=== PATIENT | male | born 1940 | race Caucasian/White ===

== ENCOUNTER → 2017-05-08 | Outpatient (REF) | payer MEDICARE, OTHER ==
[2017-05-08 12:27] LABS: ALBUMIN 3.8 GM/DL (3.2-5.2); ALBUMIN/GLOBULIN RATIO 1.19 (1.00-1.93); ALKALINE PHOSPHATASE 61 U/L (45-117); ALT/SGPT 24 U/L (12-78); ANION GAP 4 MEQ/L (8-16); AST/SGOT 22 U/L (15-37); BILIRUBIN,TOTAL 0.8 MG/DL (0.2-1.0); BLOOD UREA NITROGEN 14 MG/DL (7-18); CALCIUM LEVEL 10.1 MG/DL (8.8-10.2); CARBON DIOXIDE LEVEL 30 MEQ/L (21-32); CHLORIDE LEVEL 108 MEQ/L (98-107); CREATININE FOR GFR 1.06 MG/DL (0.70-1.30); GLOMERULAR FILTRATION RATE > 60.0 (>42); GLUCOSE, FASTING 88 MG/DL (83-110); POTASSIUM SERUM 4.7 MEQ/L (3.5-5.1); SODIUM LEVEL 142 MEQ/L (136-145)
== END ==
LOC: M SFHCPLAZ 08:07
PROVIDERS: ATTEND Internal Medicine
DX: I10 Essential (primary) hypertension (principal)

== ENCOUNTER → 2017-06-18 | Outpatient (REF) | payer MEDICARE, OTHER ==
[~2017-06-18] MED LIST: ACID1TAB5 PO; ATOR1TAB19 PO; CEFD1CAP8 PO; HYDR-643 PO; LISI10TA4 PO; QUES4POW2 PO; REST0.05 OU; VITA1CAP2 PO
[2017-06-18 14:02] LABS: MEAN CORPUSCULAR HEMOGLOBIN 32.6 pg (27.0-33.0); MEAN CORPUSCULAR VOLUME 95.9 fl (80.0-96.0); RED CELL DISTRIBUTION WIDTH 12.5 % (11.5-14.5)
[2017-06-18 14:11] LABS: ALBUMIN/GLOBULIN RATIO 1.25 (1.00-1.93); ALKALINE PHOSPHATASE 58 U/L (45-117); ALT/SGPT 28 U/L (12-78); ANION GAP 6 MEQ/L (8-16); AST/SGOT 21 U/L (15-37); BILIRUBIN,TOTAL 0.7 MG/DL (0.2-1.0); BLOOD UREA NITROGEN 14 MG/DL (7-18); CARBON DIOXIDE LEVEL 26 MEQ/L (21-32); CHLORIDE LEVEL 109 MEQ/L (98-107); CREATININE FOR GFR 0.87 MG/DL (0.70-1.30); GLOMERULAR FILTRATION RATE > 60.0 (>42); GLUCOSE, FASTING 87 MG/DL (83-110); POTASSIUM SERUM 4.3 MEQ/L (3.5-5.1); SODIUM LEVEL 141 MEQ/L (136-145); TOTAL PROTEIN 7.2 GM/DL (6.4-8.2)
== END ==
LOC: M SFHCPLAZ 12:29
PROVIDERS: ATTEND Nurse Practitioner Adult Health
DX: R19.7 Diarrhea, unspecified (principal)

== ENCOUNTER → 2017-06-30 | Outpatient (CLI) | payer MEDICARE, BC, OTHER ==
[2017-06-30 12:13] LABS: BLOOD UREA NITROGEN 12 MG/DL (7-18); CREATININE FOR GFR 1.08 MG/DL (0.70-1.30); GLOMERULAR FILTRATION RATE > 60.0 (>42)
== END ==
LOC: M LAB 11:14
PROVIDERS: ATTEND Internal Medicine Gastroenterology
DX: R19.4 Change in bowel habit (principal)

== ENCOUNTER → 2017-07-08 | Outpatient (CLI) | payer MEDICARE, BC, OTHER ==
[~2017-07-08] MED LIST changes: +GASTROGRAFIN SOLUTION 30ML (Q9963) As Ordered ONE; +ISOVUE-370 76% 100ML VIAL (Q9967) As Ordered ONE
--- NOTE | 2017-07-08 15:02 | REP ---
CT ABDOMEN/PELVIS WITHOUT AND WITH IV CONTRAST: WITH ORAL CONTRAST. HISTORY: Diverticulitis. Left lower quadrant pain. Diarrhea. Comparison CT study is from 09/25/2015. CT CONTRAST DOSE: 100 mL of intravenous Isovue-370. 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 The lung bases show a granulomatous calcification in the left and minimal linear bibasilar fibrosis. There is a cyst in the left lobe of the liver which measures 1.8 cm in greatest diameter and which is unchanged. No other focal liver lesion is seen. Spleen is unremarkable. No adrenal lesion is seen on either side. Pancreas is unremarkable. No gallbladder abnormality is seen. There is a 6 mm calculus in the upper pole of the right kidney without hydronephrosis. Normal caliber aorta is seen. There are scattered stable periaortic lymph nodes. The largest of these is again noted to measure 8 mm. No definite adenopathy. The appendix is surgically absent. There is left colonic diverticulosis without CT evidence of diverticulitis. Prostate is quite enlarged. Seminal vesicles are unremarkable. Urinary bladder is intact. IMPRESSION: 1. Intrarenal nephrolithiasis upper pole right kidney, no hydronephrosis. 2. Prostate enlargement. 3. Left colonic diverticulosis without CT evidence of diverticulitis. 4. Stable small cyst left lobe of the liver. Signed by Homer Ceron MD 07/08/2017 03:27 P
== END ==
LOC: M RAD 11:45
PROVIDERS: ATTEND Internal Medicine Gastroenterology
DX: K57.32 Diverticulitis of large intestine without perforation or abscess without bleeding (principal); R19.7 Diarrhea, unspecified
CPT/HCPCS: 74178; Q9963; Q9967

== ENCOUNTER → 2017-07-17 | Outpatient (REF) | payer MEDICARE, BC, OTHER ==
[~2017-07-17] MED LIST changes: -GASTROGRAFIN SOLUTION 30ML (Q9963) As Ordered ONE; -ISOVUE-370 76% 100ML VIAL (Q9967) As Ordered ONE
== END ==
LOC: M LAB REF 10:30
PROVIDERS: ATTEND Physician Assistant Medical
DX: R19.7 Diarrhea, unspecified (principal)

== ENCOUNTER 2017-08-13 09:07 | Outpatient (CLI) | payer MEDICARE, BC, OTHER ==
[~2017-08-13] VITALS: Ht 167.6 cm; Wt 68.0 kg
[~2017-08-13 09:07] MED LIST changes: -CEFD1CAP8 PO
[2017-08-13] MEDS ORDERED: NS 1,000 ML IV ONE (10:45)
[2017-08-13] MEDS ORDERED: PROPOFOL 200 MG/20 ML VIAL As Ordered ONE (11:25)
[2017-08-13] MEDS ORDERED: LIDOCAINE 2% INJ 100 MG/5 ML SDV (FOR ANES.) As Ordered ONE (11:25)
--- NOTE | 2017-08-13 11:49 | ROOR ---
Patient Name: Adrián Ruiz Procedure Date: 08/13/2017 11:20 AM Date of : 1940 Age: 77 Room: [facility] Gender: Male Note Status: Finalized Procedure: Colonoscopy Indications: Clinically significant diarrhea of unexplained origin Providers: Srinivasan NAIDU MD Referring MD: Arnav Hogan MD Requesting Provider: Medicines: Monitored Anesthesia Care Complications: No immediate complications. Procedure: Pre-Anesthesia Assessment: - The heart rate, respiratory rate, oxygen saturations, blood pressure, adequacy of pulmonary ventilation, and response to care were monitored throughout the procedure. The Colonoscope was introduced through the anus and advanced to 10 cm into the ileum. The colonoscopy was performed without difficulty. The patient tolerated the procedure well. The quality of the bowel preparation was good. Findings: The perianal and digital rectal examinations were normal. A 8 mm polyp was found in the cecum. The polyp was flat. The polyp was removed with a piecemeal technique using a cold snare. Resection and retrieval were complete. Multiple small-mouthed diverticula were found in the sigmoid colon. The exam was otherwise normal throughout the examined colon. The terminal ileum appeared normal. Biopsies for histology were taken with a cold forceps from the entire colon for evaluation of microscopic colitis. Fluid aspiration for Clostridium difficile was performed. Impression: - One 8 mm polyp in the cecum, removed piecemeal using a cold snare. Resected and retrieved. - Moderate diverticulosis in the sigmoid colon. - The exam was otherwise normal throughout the examined colon. - The examined portion of the ileum was normal. - Biopsies were taken with a cold forceps from the entire colon for evaluation of microscopic colitis. - Fluid aspiration was performed for C difficile eval. Recommendation: - Telephone endoscopist for pathology results in 2 weeks. - If the pathology report reveals adenomatous tissue, then repeat the colonoscopy for surveillance in 3 years. - Continue present medications. - Use Questran at 1 packet (4 grams) PO BID. Srinivasan Naidu MD Srinivasan NAIDU MD 08/13/2017 11:49:07 AM This report has been signed electronically. Number of Addenda: 0 Note Initiated On: 08/13/2017 11:20 AM Estimated Blood Loss: Estimated blood loss: none.
[2017-08-13 12:30] VITALS: BP 143/89
== END 2017-08-13 12:45 | disposition home or self-care (01) ==
LOC: M OPP 09:07
PROVIDERS: ATTEND Internal Medicine Gastroenterology
DX: R19.7 Diarrhea, unspecified (principal); R19.4 Change in bowel habit; R10.9 Unspecified abdominal pain; D12.0 Benign neoplasm of cecum; K57.30 Diverticulosis of large intestine without perforation or abscess without bleeding; I10 Essential (primary) hypertension; E78.5 Hyperlipidemia, unspecified; K57.92 Diverticulitis of intestine, part unspecified, without perforation or abscess without bleeding; L40.9 Psoriasis, unspecified; G47.30 Sleep apnea, unspecified; R06.83 Snoring; N40.1 Benign prostatic hyperplasia with lower urinary tract symptoms; Z85.828 Personal history of other malignant neoplasm of skin; Z79.899 Other long term (current) drug therapy; Z80.0 Family history of malignant neoplasm of digestive organs; Z80.3 Family history of malignant neoplasm of breast; Z80.8 Family history of malignant neoplasm of other organs or systems

== ENCOUNTER 2017-08-30 16:57 | Emergency (ER) | payer MEDICARE, BC, OTHER ==
[~2017-08-30] VITALS: Ht 167.6 cm; Wt 68.2 kg
[2017-08-30] MEDS ORDERED: CEFD1CAP8 PO (19:36)
[2017-08-30 19:48] VITALS: BP 163/93
--- NOTE | 2017-08-31 06:06 | REP ---
Chest x-ray: Two views. History: Shortness of breath. Comparison study: September 15, 2007. Findings: There is a granulomatous calcification in the left mid lung zone. Lungs are otherwise well inflated and clear. The pleural angles are sharp. The aorta is somewhat tortuous. Heart size is normal. No significant bony abnormality is seen. Impression: No active disease. Signed by Homer Ceron MD 08/31/2017 08:45 A
== END 2017-08-30 19:50 | disposition home or self-care (01) ==
LOC: M ED 16:57
DX: J01.90 Acute sinusitis, unspecified (principal); I10 Essential (primary) hypertension; E78.00 Pure hypercholesterolemia, unspecified; G47.30 Sleep apnea, unspecified; Z79.899 Other long term (current) drug therapy

== ENCOUNTER → 2017-11-17 | Outpatient (REF) | payer MEDICARE, OTHER ==
[2017-11-17 10:39] LABS: HEMATOCRIT 40.9 % (42.0-52.0); HEMOGLOBIN 13.6 g/dl (14.0-18.0); MEAN CORPUSCULAR HEMOGLOBIN 31.6 pg (27.0-33.0); MEAN CORPUSCULAR HGB CONC 33.3 g/dl (32.0-36.5); MEAN CORPUSCULAR VOLUME 94.9 fl (80.0-96.0); PLATELET COUNT, AUTOMATED 257 10^3/uL (150-450); RED BLOOD COUNT 4.31 10^6/uL (4.30-6.10); RED CELL DISTRIBUTION WIDTH 12.9 % (11.5-14.5); WHITE BLOOD COUNT 6.6 10^3/uL (4.0-10.0)
[2017-11-17 10:56] LABS: TOTAL 25(OH) VITAMIN D 41.4 NG/ML (30.0-100.0)
[2017-11-17 11:06] LABS: ALBUMIN 3.5 GM/DL (3.2-5.2); ALBUMIN/GLOBULIN RATIO 1.06 (1.00-1.93); ALKALINE PHOSPHATASE 67 U/L (45-117); ALT/SGPT 16 U/L (12-78); ANION GAP 4 MEQ/L (8-16); AST/SGOT 12 U/L (7-37); BLOOD UREA NITROGEN 10 MG/DL (7-18); CALCIUM LEVEL 9.6 MG/DL (8.8-10.2); CARBON DIOXIDE LEVEL 29 MEQ/L (21-32); CHLORIDE LEVEL 109 MEQ/L (98-107); CHOLESTEROL LEVEL 123 MG/DL (<200); CHOLESTEROL RISK RATIO 1.732 (<5); CREATININE FOR GFR 1.03 MG/DL (0.70-1.30); GLOMERULAR FILTRATION RATE > 60.0 (>42); GLUCOSE, FASTING 93 MG/DL (83-110); HDL CHOLESTEROL 71 MG/DL (>40); MAGNESIUM LEVEL 2.4 MG/DL (1.8-2.4); NON-HDL-C 52 MG/DL; SODIUM LEVEL 142 MEQ/L (136-145); TOTAL PROTEIN 6.8 GM/DL (6.4-8.2); TRIGLYCERIDES LEVEL 80 MG/DL (<150)
== END ==
LOC: M SFHCPLAZ 08:03
DX: G47.30 Sleep apnea, unspecified (principal); I10 Essential (primary) hypertension; E78.00 Pure hypercholesterolemia, unspecified; E55.9 Vitamin D deficiency, unspecified
CPT/HCPCS: 83735

== ENCOUNTER 2018-01-15 06:40 | Day surgery (SDC) | payer MEDICARE, BC, OTHER ==
[2018-01-15] MEDS: NS 500 ML IV ×2 (07:07)
[2018-01-15] MEDS ORDERED: PROPOFOL 200 MG/20 ML VIAL As Ordered (07:14)
== END 2018-01-15 08:30 | disposition home or self-care (01) ==
LOC: M OPP 06:40
DX: Z09 Encounter for follow-up examination after completed treatment for conditions other than malignant neoplasm (principal); Z86.010 Personal history of colon polyps; Z98.890 Other specified postprocedural states; D12.0 Benign neoplasm of cecum; K57.30 Diverticulosis of large intestine without perforation or abscess without bleeding; K63.89 Other specified diseases of intestine; I10 Essential (primary) hypertension; E78.5 Hyperlipidemia, unspecified; G47.30 Sleep apnea, unspecified; R06.83 Snoring; Z87.442 Personal history of urinary calculi; N40.1 Benign prostatic hyperplasia with lower urinary tract symptoms; Z85.828 Personal history of other malignant neoplasm of skin; Z79.899 Other long term (current) drug therapy; Z80.0 Family history of malignant neoplasm of digestive organs; Z80.3 Family history of malignant neoplasm of breast
CPT/HCPCS: 45385

== ENCOUNTER → 2018-02-03 | Outpatient (REF) | payer MEDICARE, OTHER ==
[2018-02-03 11:39] LABS: HEMATOCRIT 42.2 % (42.0-52.0); HEMOGLOBIN 13.3 g/dl (14.0-18.0); MEAN CORPUSCULAR HEMOGLOBIN 29.7 pg (27.0-33.0); MEAN CORPUSCULAR HGB CONC 31.5 g/dl (32.0-36.5); MEAN CORPUSCULAR VOLUME 94.2 fl (80.0-96.0); PLATELET COUNT, AUTOMATED 297 10^3/uL (150-450); RED BLOOD COUNT 4.48 10^6/uL (4.30-6.10); RED CELL DISTRIBUTION WIDTH 12.9 % (11.5-14.5)
[2018-02-03 12:04] LABS: ANION GAP 5 MEQ/L (8-16); BLOOD UREA NITROGEN 16 MG/DL (7-18); C REACTIVE PROTEIN QUANTITATIV < 0.30 MG/DL (0.00-0.30); CALCIUM LEVEL 10.2 MG/DL (8.8-10.2); CARBON DIOXIDE LEVEL 28 MEQ/L (21-32); CHLORIDE LEVEL 106 MEQ/L (98-107); CREATININE FOR GFR 1.07 MG/DL (0.70-1.30); GLOMERULAR FILTRATION RATE > 60.0 (>42); GLUCOSE, FASTING 81 MG/DL (70-100); POTASSIUM SERUM 4.1 MEQ/L (3.5-5.1); SODIUM LEVEL 139 MEQ/L (136-145)
[2018-02-03 12:34] LABS: ERYTHROCYTE SEDIMENTATION RATE 12 mm/hr (0-20)
== END ==
LOC: M SFHCPLAZ 08:39
DX: Z01.818 Encounter for other preprocedural examination (principal); M25.511 Pain in right shoulder
CPT/HCPCS: 80048

== ENCOUNTER 2018-02-23 07:35 | Inpatient (IN) | payer MEDICARE, BC, OTHER ==
[2018-02-23] MEDS: LIDOCAINE 1% SDV 5 ML VIAL SQ (07:45)
[2018-02-23] MEDS: LR 1,000 ML IV ×2 (08:50→13:15)
[2018-02-23] MEDS ORDERED: ERTAPENEM 1 GM INJ (INVanz) (J1335) As Ordered (08:51)
[2018-02-23] MEDS: MONTELUKAST 10 MG TAB PO ×3 (08:53→15:21)
[2018-02-23] MEDS ORDERED: ROCURONIUM BROMIDE 50 MG/5 ML VIAL As Ordered ×2 (09:44→11:50)
[2018-02-23] MEDS ORDERED: PROPOFOL 200 MG/20 ML VIAL As Ordered (09:44)
[2018-02-23] MEDS: GLUCAGON FOR INJ 1 MG VIAL (J1610) As Ordered (09:44)
[2018-02-23] MEDS ORDERED: ONDANSETRON 4MG/2ML VIAL (J2405) As Ordered (09:44)
[2018-02-23] MEDS ORDERED: LIDOCAINE 2% INJ 100 MG/5 ML SDV (FOR ANES.) As Ordered (09:44)
[2018-02-23] MEDS ORDERED: METOCLOPRAMIDE INJ 10MG/2ML VIAL (J2765) As Ordered (09:44)
[2018-02-23] MEDS ORDERED: fentaNYL 250 MCG/5 ML INJECTION (J3010) As Ordered (09:45)
[2018-02-23] MEDS: ERTAPENEM SODIUM 1 GM in NS 50 ML IV (10:07)
[2018-02-23] MEDS ORDERED: LABETALOL HCL 100 MG/20 ML VIAL As Ordered (11:50)
[2018-02-23] MEDS ORDERED: PHENYLephrine HCL 500 MCG/5 ML (100MCG/ML) SYRINGE (J2370) As Ordered (11:50)
[2018-02-23] MEDS: BUPIVACAINE HCL 0.25% 10 ML VIAL As Ordered (12:20)
[2018-02-23] MEDS: BUPIVACAINE/EPIN 0.5% 30 ML VIAL As Ordered (12:20)
[2018-02-23] MEDS: BUPIVACAINE LIPOSOME/PF 1.3% 20 ML VIAL (13.3MG/ML)(EXPAREL) As Ordered (12:20)
[2018-02-23] MEDS ORDERED: NS 1,000 ML IV (12:36)
[2018-02-23] MEDS ORDERED: EPIDURAL/PCA KEYS XX (12:45)
[2018-02-23] MEDS ORDERED: METOCLOPRAMIDE INJ 10MG/2ML VIAL (J2765) IV (12:45)
[2018-02-23] MEDS ORDERED: PROMETHAZINE INJ 25 MG/ML VIAL (J2550) IV (12:45)
[2018-02-23] MEDS ORDERED: ONDANSETRON 4MG/2ML VIAL (J2405) IV ×2 (12:45→13:15)
[2018-02-23] MEDS ORDERED: diphenhydrAMINE INJ 50MG/ML VIAL (J1200) IV (12:45)
[2018-02-23] MEDS ORDERED: fentaNYL 100 MCG/2 ML INJECTION (J3010) As Ordered (12:59)
[2018-02-23] MEDS: fentaNYL 100 MCG/2 ML INJECTION (J3010) IV ×4 (13:00→13:25)
[2018-02-23] MEDS ORDERED: GLYCOPYRROLATE INJ 0.2 MG/ML 2 ML VIAL As Ordered (13:01)
[2018-02-23] MEDS ORDERED: KETOROLAC 60 MG/2 ML VIAL (J1885) As Ordered (13:01)
[2018-02-23] MEDS ORDERED: dexameTHASONE 4 MG/ML 1ML VIAL (J1100) As Ordered (13:01)
[2018-02-23] MEDS: KETOROLAC 30 MG/ML VIAL (J1885) IV ×3 (13:10→15:31)
[2018-02-23] MEDS ORDERED: HYDROmorphone HCL 1 MG/ML SYRINGE (J1170) IV (13:15)
[2018-02-23] MEDS ORDERED: PERCOCET 5MG/325MG TAB PO (13:15)
[2018-02-23] MEDS: MORPHINE 1MG/ML IN 0.9% NACL 100ML IV BAG IV (14:00)
[2018-02-23] MEDS: PANTOPRAZOLE 40MG INJ (PROTONIX) (C9113) IV (15:03)
[2018-02-23] MEDS: NS 1,000 ML IV ×2 (15:03→22:34)
[2018-02-23] MEDS: LOSARTAN 50 MG TAB PO (15:04)
[2018-02-23] MEDS: ALVIMOPAN 12 MG CAPSULE (ENTEREG) PO ×2 (15:07→20:46)
[2018-02-24] MEDS: NS 1,000 ML IV ×3 (06:20→22:40)
[2018-02-24 06:27] LABS: HEMOGLOBIN 11.5 g/dl (13.5-17.5); MEAN CORPUSCULAR HGB CONC 33.8 g/dl (32.0-36.5); MEAN CORPUSCULAR VOLUME 91.6 fl (80.0-96.0); PLATELET COUNT, AUTOMATED 237 10^3/uL (150-450); RED BLOOD COUNT 3.71 10^6/uL (4.30-6.10); RED CELL DISTRIBUTION WIDTH 12.8 % (11.5-14.5); WHITE BLOOD COUNT 11.4 10^3/uL (4.0-10.0)
[2018-02-24 06:47] LABS: ANION GAP 5 MEQ/L (8-16); BLOOD UREA NITROGEN 14 MG/DL (7-18); CALCIUM LEVEL 9.2 MG/DL (8.8-10.2); CARBON DIOXIDE LEVEL 25 MEQ/L (21-32); CHLORIDE LEVEL 111 MEQ/L (98-107); CREATININE FOR GFR 0.92 MG/DL (0.70-1.30); GLOMERULAR FILTRATION RATE > 60.0 (>42); GLUCOSE, FASTING 124 MG/DL (70-100); POTASSIUM SERUM 3.8 MEQ/L (3.5-5.1); SODIUM LEVEL 141 MEQ/L (136-145)
[2018-02-24] MEDS: ERTAPENEM SODIUM 1 GM in NS MINI-BAG PLUS 50 ML IV (10:29)
[2018-02-24] MEDS: PANTOPRAZOLE 40MG INJ (PROTONIX) (C9113) IV (10:29)
[2018-02-24] MEDS: ALVIMOPAN 12 MG CAPSULE (ENTEREG) PO ×2 (10:30→20:31)
[2018-02-24] MEDS: LOSARTAN 50 MG TAB PO (10:32)
[2018-02-24] MEDS: PREVNAR 13 VACCINE SYRINGE (CPT CODE:90670) IM (11:46)
[2018-02-24] MEDS: MORPHINE 1MG/ML IN 0.9% NACL 100ML IV BAG IV (19:21)
[2018-02-25] MEDS: NS 1,000 ML IV (06:13)
[2018-02-25 06:31] LABS: HEMATOCRIT 35.4 % (42.0-52.0); HEMOGLOBIN 11.6 g/dl (13.5-17.5); MEAN CORPUSCULAR HEMOGLOBIN 30.4 pg (27.0-33.0); MEAN CORPUSCULAR HGB CONC 32.8 g/dl (32.0-36.5); MEAN CORPUSCULAR VOLUME 92.9 fl (80.0-96.0); PLATELET COUNT, AUTOMATED 213 10^3/uL (150-450); RED BLOOD COUNT 3.81 10^6/uL (4.30-6.10); RED CELL DISTRIBUTION WIDTH 13.2 % (11.5-14.5); WHITE BLOOD COUNT 10.3 10^3/uL (4.0-10.0)
[2018-02-25 06:49] LABS: ANION GAP 5 MEQ/L (8-16); BLOOD UREA NITROGEN 14 MG/DL (7-18); CALCIUM LEVEL 9.4 MG/DL (8.8-10.2); CARBON DIOXIDE LEVEL 25 MEQ/L (21-32); CHLORIDE LEVEL 114 MEQ/L (98-107); CREATININE FOR GFR 0.82 MG/DL (0.70-1.30); GLOMERULAR FILTRATION RATE > 60.0 (>42); GLUCOSE, FASTING 88 MG/DL (70-100); SODIUM LEVEL 144 MEQ/L (136-145)
[2018-02-25] MEDS: SIMETHICONE 80 MG CHEW TAB PO ×4 (09:00→20:28)
[2018-02-25] MEDS: TAMSULOSIN 0.4 MG CAP PO (09:00)
[2018-02-25] MEDS: LOSARTAN 50 MG TAB PO (09:15)
[2018-02-25] MEDS: MONTELUKAST 10 MG TAB PO (09:15)
[2018-02-25] MEDS: ALVIMOPAN 12 MG CAPSULE (ENTEREG) PO ×2 (09:15→20:28)
[2018-02-25] MEDS: PANTOPRAZOLE 40MG INJ (PROTONIX) (C9113) IV (09:16)
[2018-02-25] MEDS ORDERED: MORPHINE 4 MG/ML 1ML VIAL/SYRINGE (J2270) IV (10:45)
[2018-02-25] MEDS ORDERED: PILL CRUSHER/CUTTER 1 EACH XX (11:00)
[2018-02-25] MEDS: NORCO, ANEXSIA 5/325MG TABLET (HYDROcodone/ACETAMINOPHEN) PO (20:29)
[2018-02-26 07:20] LABS: HEMOGLOBIN 12.6 g/dl (13.5-17.5); MEAN CORPUSCULAR HGB CONC 34.1 g/dl (32.0-36.5); MEAN CORPUSCULAR VOLUME 91.1 fl (80.0-96.0); PLATELET COUNT, AUTOMATED 233 10^3/uL (150-450); RED BLOOD COUNT 4.06 10^6/uL (4.30-6.10); RED CELL DISTRIBUTION WIDTH 12.6 % (11.5-14.5); WHITE BLOOD COUNT 7.8 10^3/uL (4.0-10.0)
[2018-02-26 07:51] LABS: ANION GAP 6 MEQ/L (8-16); BLOOD UREA NITROGEN 9 MG/DL (7-18); CALCIUM LEVEL 9.9 MG/DL (8.8-10.2); CARBON DIOXIDE LEVEL 26 MEQ/L (21-32); CHLORIDE LEVEL 109 MEQ/L (98-107); CREATININE FOR GFR 0.86 MG/DL (0.70-1.30); GLOMERULAR FILTRATION RATE > 60.0 (>42); GLUCOSE, FASTING 101 MG/DL (70-100); POTASSIUM SERUM 3.5 MEQ/L (3.5-5.1); SODIUM LEVEL 141 MEQ/L (136-145)
[2018-02-26] MEDS: MONTELUKAST 10 MG TAB PO (09:14)
[2018-02-26] MEDS: LOSARTAN 50 MG TAB PO (09:14)
[2018-02-26] MEDS: TAMSULOSIN 0.4 MG CAP PO (09:14)
[2018-02-26] MEDS: SIMETHICONE 80 MG CHEW TAB PO ×4 (09:14→20:04)
[2018-02-26] MEDS: PANTOPRAZOLE 40MG INJ (PROTONIX) (C9113) IV (09:14)
[2018-02-26] MEDS: ALVIMOPAN 12 MG CAPSULE (ENTEREG) PO ×2 (09:14→20:04)
[2018-02-26] MEDS: NORCO, ANEXSIA 5/325MG TABLET (HYDROcodone/ACETAMINOPHEN) PO ×2 (11:36→15:38)
[2018-02-26] MEDS: KETOROLAC 30 MG/ML VIAL (J1885) IV (20:05)
[2018-02-27 05:59] LABS: HEMATOCRIT 37.5 % (42.0-52.0); HEMOGLOBIN 12.8 g/dl (13.5-17.5); MEAN CORPUSCULAR HEMOGLOBIN 30.1 pg (27.0-33.0); MEAN CORPUSCULAR HGB CONC 34.1 g/dl (32.0-36.5); MEAN CORPUSCULAR VOLUME 88.2 fl (80.0-96.0); PLATELET COUNT, AUTOMATED 251 10^3/uL (150-450); RED BLOOD COUNT 4.25 10^6/uL (4.30-6.10); RED CELL DISTRIBUTION WIDTH 12.4 % (11.5-14.5); WHITE BLOOD COUNT 7.1 10^3/uL (4.0-10.0)
[2018-02-27 06:13] LABS: ANION GAP 7 MEQ/L (8-16); BLOOD UREA NITROGEN 7 MG/DL (7-18); CALCIUM LEVEL 10.5 MG/DL (8.8-10.2); CARBON DIOXIDE LEVEL 27 MEQ/L (21-32); CHLORIDE LEVEL 107 MEQ/L (98-107); GLOMERULAR FILTRATION RATE > 60.0 (>42); GLUCOSE, FASTING 101 MG/DL (70-100); POTASSIUM SERUM 3.3 MEQ/L (3.5-5.1); SODIUM LEVEL 141 MEQ/L (136-145)
[2018-02-27] MEDS: SIMETHICONE 80 MG CHEW TAB PO ×4 (08:52→20:19)
[2018-02-27] MEDS: NORCO, ANEXSIA 5/325MG TABLET (HYDROcodone/ACETAMINOPHEN) PO ×2 (08:52→17:21)
[2018-02-27] MEDS: ALVIMOPAN 12 MG CAPSULE (ENTEREG) PO ×2 (08:52→20:19)
[2018-02-27] MEDS: MONTELUKAST 10 MG TAB PO (08:53)
[2018-02-27] MEDS: TAMSULOSIN 0.4 MG CAP PO (08:53)
[2018-02-27] MEDS: PANTOPRAZOLE 40MG INJ (PROTONIX) (C9113) IV (08:53)
[2018-02-27] MEDS: LOSARTAN 50 MG TAB PO (08:53)
[2018-02-27] MEDS: POTASSIUM CHLORIDE 10 MEQ SR TABLET PO (13:29)
[2018-02-27] MEDS: ENOXAPARIN 40 MG/0.4 ML SYRINGE (J1650) SC (13:30)
[2018-02-27] MEDS: KETOROLAC 30 MG/ML VIAL (J1885) IV (19:49)
[2018-02-28 05:20] LABS: HEMATOCRIT 35.3 % (42.0-52.0); HEMOGLOBIN 11.9 g/dl (13.5-17.5); MEAN CORPUSCULAR HEMOGLOBIN 30.7 pg (27.0-33.0); MEAN CORPUSCULAR HGB CONC 33.7 g/dl (32.0-36.5); PLATELET COUNT, AUTOMATED 238 10^3/uL (150-450); RED BLOOD COUNT 3.88 10^6/uL (4.30-6.10); RED CELL DISTRIBUTION WIDTH 12.7 % (11.5-14.5)
[2018-02-28 05:37] LABS: ANION GAP 4 MEQ/L (8-16); BLOOD UREA NITROGEN 13 MG/DL (7-18); CALCIUM LEVEL 10.6 MG/DL (8.8-10.2); CARBON DIOXIDE LEVEL 28 MEQ/L (21-32); CHLORIDE LEVEL 110 MEQ/L (98-107); CREATININE FOR GFR 0.99 MG/DL (0.70-1.30); GLOMERULAR FILTRATION RATE > 60.0 (>42); GLUCOSE, FASTING 111 MG/DL (70-100); POTASSIUM SERUM 3.4 MEQ/L (3.5-5.1); SODIUM LEVEL 142 MEQ/L (136-145)
[2018-02-28] MEDS: ALVIMOPAN 12 MG CAPSULE (ENTEREG) PO ×2 (08:47→21:16)
[2018-02-28] MEDS: MONTELUKAST 10 MG TAB PO (08:47)
[2018-02-28] MEDS: SIMETHICONE 80 MG CHEW TAB PO ×4 (08:48→21:16)
[2018-02-28] MEDS: PANTOPRAZOLE 40MG INJ (PROTONIX) (C9113) IV (08:48)
[2018-02-28] MEDS: NORCO, ANEXSIA 5/325MG TABLET (HYDROcodone/ACETAMINOPHEN) PO ×3 (08:48→21:17)
[2018-02-28] MEDS: POTASSIUM CHLORIDE 10 MEQ SR TABLET PO (08:48)
[2018-02-28] MEDS: ENOXAPARIN 40 MG/0.4 ML SYRINGE (J1650) SC (08:49)
[2018-02-28] MEDS: TAMSULOSIN 0.4 MG CAP PO (08:49)
[2018-02-28] MEDS: LOSARTAN 50 MG TAB PO (08:49)
[2018-03-01] MEDS: NORCO, ANEXSIA 5/325MG TABLET (HYDROcodone/ACETAMINOPHEN) PO ×2 (02:45→09:10)
[2018-03-01 05:50] LABS: HEMATOCRIT 33.9 % (42.0-52.0); HEMOGLOBIN 11.4 g/dl (13.5-17.5); MEAN CORPUSCULAR HEMOGLOBIN 30.6 pg (27.0-33.0); MEAN CORPUSCULAR HGB CONC 33.6 g/dl (32.0-36.5); MEAN CORPUSCULAR VOLUME 90.9 fl (80.0-96.0); PLATELET COUNT, AUTOMATED 255 10^3/uL (150-450); RED BLOOD COUNT 3.73 10^6/uL (4.30-6.10); RED CELL DISTRIBUTION WIDTH 12.9 % (11.5-14.5)
[2018-03-01 06:11] LABS: ANION GAP 5 MEQ/L (8-16); BLOOD UREA NITROGEN 14 MG/DL (7-18); CALCIUM LEVEL 10.6 MG/DL (8.8-10.2); CARBON DIOXIDE LEVEL 27 MEQ/L (21-32); CHLORIDE LEVEL 109 MEQ/L (98-107); CREATININE FOR GFR 0.92 MG/DL (0.70-1.30); GLOMERULAR FILTRATION RATE > 60.0 (>42); GLUCOSE, FASTING 101 MG/DL (70-100); POTASSIUM SERUM 3.6 MEQ/L (3.5-5.1); SODIUM LEVEL 141 MEQ/L (136-145)
[2018-03-01] MEDS: ENOXAPARIN 40 MG/0.4 ML SYRINGE (J1650) SC (09:00)
[2018-03-01] MEDS: LOSARTAN 50 MG TAB PO (09:05)
[2018-03-01] MEDS: TAMSULOSIN 0.4 MG CAP PO (09:05)
[2018-03-01] MEDS: ALVIMOPAN 12 MG CAPSULE (ENTEREG) PO (09:05)
[2018-03-01] MEDS: MONTELUKAST 10 MG TAB PO (09:06)
[2018-03-01] MEDS: SIMETHICONE 80 MG CHEW TAB PO (09:06)
[2018-03-01] MEDS: POTASSIUM CHLORIDE 10 MEQ SR TABLET PO (09:06)
[2018-03-01] MEDS: PANTOPRAZOLE 40MG INJ (PROTONIX) (C9113) IV (09:07)
== END 2018-03-01 11:45 | disposition home or self-care (01) | DRG 330 ==
LOC: M OR 07:35 → M MSPAV 14:34
PROC: 0DTH0ZZ Resection of Cecum, Open Approach (ICD-10-PCS; principal; 2018-02-23 09:15)
PROC: 0DBB0ZZ Excision of Ileum, Open Approach (ICD-10-PCS; 2018-02-23 09:15)
PROC: 0DBC0ZZ Excision of Ileocecal Valve, Open Approach (ICD-10-PCS; 2018-02-23 09:15)
DX: D12.0 Benign neoplasm of cecum (principal); K56.7 Ileus, unspecified; I10 Essential (primary) hypertension; E78.00 Pure hypercholesterolemia, unspecified; Z79.899 Other long term (current) drug therapy; Z87.442 Personal history of urinary calculi; Z85.828 Personal history of other malignant neoplasm of skin; N40.1 Benign prostatic hyperplasia with lower urinary tract symptoms

== ENCOUNTER → 2018-05-20 | Outpatient (REF) | payer MEDICARE, OTHER ==
[2018-05-20 12:17] LABS: ALBUMIN 3.6 GM/DL (3.2-5.2); ALBUMIN/GLOBULIN RATIO 1.03 (1.00-1.93); ALKALINE PHOSPHATASE 66 U/L (45-117); ALT/SGPT 25 U/L (12-78); ANION GAP 8 MEQ/L (8-16); AST/SGOT 16 U/L (7-37); BILIRUBIN,TOTAL 0.6 MG/DL (0.2-1.0); BLOOD UREA NITROGEN 15 MG/DL (7-18); C REACTIVE PROTEIN QUANTITATIV < 0.30 MG/DL (0.00-0.30); CALCIUM LEVEL 9.6 MG/DL (8.8-10.2); CARBON DIOXIDE LEVEL 26 MEQ/L (21-32); CHLORIDE LEVEL 109 MEQ/L (98-107); CREATININE FOR GFR 1.11 MG/DL (0.70-1.30); GLOMERULAR FILTRATION RATE > 60.0 (>42); GLUCOSE, FASTING 88 MG/DL (70-100); MAGNESIUM LEVEL 2.2 MG/DL (1.8-2.4); POTASSIUM SERUM 4.4 MEQ/L (3.5-5.1); RHEUMATOID FACTOR QUANT < 10.0 IU/ML (<15.0); SODIUM LEVEL 143 MEQ/L (136-145); TOTAL PROTEIN 7.1 GM/DL (6.4-8.2)
[2018-05-20 12:52] LABS: ERYTHROCYTE SEDIMENTATION RATE 11 mm/hr (0-20)
[2018-05-22 00:12] LABS: ANTI DOUBLE STRAND-DNA AB <1 IU/mL (0-9); ANTINUCLEAR ANTIBODIES DIRECT Positive (Negative); SJOGREN'S ANTI SS-A <0.2 AI (0.0-0.9); SJOGREN'S ANTI SS-B <0.2 AI (0.0-0.9); SMITH ANTIBODIES <0.2 AI (0.0-0.9)
== END ==
LOC: M SFHCPLAZ 07:59
DX: R68.2 Dry mouth, unspecified (principal); I10 Essential (primary) hypertension; M25.50 Pain in unspecified joint
CPT/HCPCS: 83735

== ENCOUNTER → 2018-10-13 | Outpatient (REF) | payer MEDICARE, OTHER ==
[2018-10-13 13:04] LABS: PLATELET COUNT, AUTOMATED 269 10^3/uL (150-450)
[2018-10-13 13:13] LABS: INR 0.93; PARTIAL THROMBOPLASTIN TIME 30.4 SECONDS (25.4-37.6); PROTHROMBIN TIME 12.6 SECONDS (12.1-14.4)
== END ==
LOC: M LABDRAW1 12:38
DX: M51.36 Other intervertebral disc degeneration, lumbar region (principal); M47.896 Other spondylosis, lumbar region; M48.062 Spinal stenosis, lumbar region with neurogenic claudication
CPT/HCPCS: 85049

== ENCOUNTER → 2018-11-29 | Outpatient (REF) | payer MEDICARE, OTHER ==
[~2018-11-29] MED LIST changes: +ALIG4CAP PO; +BENA25TA10 PO; +BENETAB2 PO; +CEFD1CAP8 PO; +CHOL4PW; +FLOM0.4C39 PO; +GABA-843; +HYDR200T3; +IRBE300T10; +LOSA100T50 PO; +MEDR4PAK PO; +MELA10CA PO; +METR-201; +MONT10TA2; +NEOM500T; +NORCOTAB PO; +PRED5TA; +SUPRSOL2; +VITA100067 PO; +VITA200015 PO
[2018-11-29 12:58] LABS: HEMATOCRIT 42.8 % (42.0-52.0); HEMOGLOBIN 13.9 g/dl (13.5-17.5); MEAN CORPUSCULAR HEMOGLOBIN 31.1 pg (27.0-33.0); MEAN CORPUSCULAR HGB CONC 32.5 g/dl (32.0-36.5); MEAN CORPUSCULAR VOLUME 95.7 fl (80.0-96.0); PLATELET COUNT, AUTOMATED 270 10^3/uL (150-450); RED BLOOD COUNT 4.47 10^6/uL (4.30-6.10); WHITE BLOOD COUNT 5.3 10^3/uL (4.0-10.0)
[2018-11-29 13:12] LABS: ALBUMIN 3.5 GM/DL (3.2-5.2); ALT/SGPT 20 U/L (12-78); BILIRUBIN,TOTAL 0.7 MG/DL (0.2-1.0); BLOOD UREA NITROGEN 14 MG/DL (7-18); CALCIUM LEVEL 10.1 MG/DL (8.8-10.2); CARBON DIOXIDE LEVEL 25 MEQ/L (21-32); CHLORIDE LEVEL 108 MEQ/L (98-107); CHOLESTEROL LEVEL 120 MG/DL (<200); CREATININE FOR GFR 1.08 MG/DL (0.70-1.30); GLOMERULAR FILTRATION RATE > 60.0 (>42); GLUCOSE, FASTING 91 MG/DL (70-100); HDL CHOLESTEROL 60 MG/DL (>40); LDL CHOLESTEROL 42 MG/DL (<100); NON-HDL-C 60 MG/DL; POTASSIUM SERUM 4.5 MEQ/L (3.5-5.1); SODIUM LEVEL 142 MEQ/L (136-145); TOTAL PROTEIN 6.6 GM/DL (6.4-8.2); TRIGLYCERIDES LEVEL 91 MG/DL (<150)
== END ==
LOC: M SFHCPLAZ 08:46
PROVIDERS: ATTEND Internal Medicine
DX: L40.50 Arthropathic psoriasis, unspecified (principal); I10 Essential (primary) hypertension; E78.00 Pure hypercholesterolemia, unspecified; T14.8XXA Other injury of unspecified body region, initial encounter; X58.XXXA Exposure to other specified factors, initial encounter; Y92.9 Unspecified place or not applicable

== ENCOUNTER 2019-02-25 09:31 | Day surgery (SDC) | payer MEDICARE, BC, OTHER ==
[~2019-02-25] VITALS: Ht 167.6 cm; Wt 72.6 kg
[~2019-02-25 09:31] MED LIST changes: +ALEV220T26 PO; -GABA-843; +GABA-843 PO; +HYDR-3715 PO; -HYDR200T3; +HYDR200T3 PO; -IRBE300T10; +IRBE300T10 PO; -METR-201; +METR-265; +MONT10TA2 PO; -NORCOTAB PO; +TYLE1TAB5 PO; +VITA-183 PO; -VITA1CAP2 PO
[2019-02-25] MEDS ORDERED: NS 1,000 ML IV ONE (09:45)
[2019-02-25] MEDS ORDERED: LIDOCAINE 2% INJ 100 MG/5 ML SDV (FOR ANES.) As Ordered ONE (10:47)
[2019-02-25] MEDS ORDERED: PROPOFOL 200 MG/20 ML VIAL As Ordered ONE (10:47)
--- NOTE | 2019-02-25 11:03 | ROOR ---
Patient Name: Adrián Ruiz Procedure Date: 02/25/2019 10:34 AM Date of : 1940 Age: 78 Room: [facility] Gender: Male Note Status: Finalized Procedure: Colonoscopy Indications: High risk colon cancer surveillance: Personal history of adenoma with high grade dysplasia, Incidental - Follow-up of microscopic colitis Providers: Srinivasan NAIDU MD Referring MD: rAnav Hogan MD Requesting Provider: Medicines: Monitored Anesthesia Care Complications: No immediate complications. Procedure: Pre-Anesthesia Assessment: - The heart rate, respiratory rate, oxygen saturations, blood pressure, adequacy of pulmonary ventilation, and response to care were monitored throughout the procedure. The Colonoscope was introduced through the anus and advanced to the ileocolonic anastomosis. The colonoscopy was performed without difficulty. The patient tolerated the procedure well. The quality of the bowel preparation was good. Findings: The digital rectal exam was normal. Pertinent negatives include normal prostate (size, shape, and consistency). There was evidence of a prior functional end-to-end ileo-colonic anastomosis at the hepatic flexure. This was patent and was characterized by healthy appearing mucosa. A diminutive polyp was found in the sigmoid colon. The polyp was sessile. The polyp was removed with a cold snare. Resection and retrieval were complete. Multiple small and large-mouthed diverticula were found in the sigmoid colon. Internal hemorrhoids were found during retroflexion. The hemorrhoids were moderate. Biopsies for histology were taken with a cold forceps from the entire colon for evaluation of microscopic colitis. Impression: - (The digital rectal exam was normal. Pertinent negatives include normal prostate) - Patent functional end-to-end ileo-colonic anastomosis, characterized by healthy appearing mucosa. - One diminutive polyp in the sigmoid colon, removed with a cold snare. Resected and retrieved. - Diverticulosis in the sigmoid colon. - Internal hemorrhoids. - Biopsies were taken with a cold forceps from the entire colon for evaluation of microscopic colitis. Recommendation: - Repeat colonoscopy in 3 years for surveillance. - Telephone endoscopist for pathology results in 2 weeks. Srinivasan Naidu MD Srinivasan NAIDU MD 02/25/2019 11:02:51 AM Electronically signed by Srinivasan NAIDU MD Number of Addenda: 0 Note Initiated On: 02/25/2019 10:34 AM Estimated Blood Loss: Estimated blood loss: none.
[2019-02-25 11:25] VITALS: BP 130/90
== END 2019-02-25 11:32 | disposition home or self-care (01) ==
LOC: M OPP 09:31
PROVIDERS: ATTEND Internal Medicine Gastroenterology
DX: D12.5 Benign neoplasm of sigmoid colon (principal); K57.30 Diverticulosis of large intestine without perforation or abscess without bleeding; K64.8 Other hemorrhoids; Z86.010 Personal history of colon polyps; Z98.0 Intestinal bypass and anastomosis status

== ENCOUNTER → 2019-06-01 | Outpatient (REF) | payer MEDICARE, OTHER ==
[2019-06-01 09:28] LABS: HEMATOCRIT 41.3 % (42.0-52.0); HEMOGLOBIN 13.6 g/dl (13.5-17.5); MEAN CORPUSCULAR HEMOGLOBIN 32.5 pg (27.0-33.0); MEAN CORPUSCULAR HGB CONC 32.9 g/dl (32.0-36.5); MEAN CORPUSCULAR VOLUME 98.6 fl (80.0-96.0); PLATELET COUNT, AUTOMATED 225 10^3/uL (150-450); RED BLOOD COUNT 4.19 10^6/uL (4.30-6.10); WHITE BLOOD COUNT 5.1 10^3/uL (4.0-10.0)
[2019-06-01 09:55] LABS: ALBUMIN 3.7 GM/DL (3.2-5.2); BILIRUBIN,TOTAL 0.9 MG/DL (0.2-1.0); CALCIUM LEVEL 11.8 MG/DL (8.8-10.2); CREATININE FOR GFR 1.25 MG/DL (0.70-1.30); GLOMERULAR FILTRATION RATE 59.5 (>42); MAGNESIUM LEVEL 2.4 MG/DL (1.8-2.4); POTASSIUM SERUM 4.2 MEQ/L (3.5-5.1); TOTAL PROTEIN 6.9 GM/DL (6.4-8.2)
== END ==
LOC: M SFHCPLAZ 08:11
PROVIDERS: ATTEND Internal Medicine
DX: G47.30 Sleep apnea, unspecified (principal); I10 Essential (primary) hypertension; H53.40 Unspecified visual field defects; L40.50 Arthropathic psoriasis, unspecified

== ENCOUNTER → 2019-07-05 | Outpatient (REF) | payer MEDICARE, OTHER ==
[2019-07-05 10:00] LABS: IONIZED CALCIUM 5.8 MG/DL (4.5-5.3)
[2019-07-05 10:07] LABS: CALCIUM LEVEL 10.7 MG/DL (8.8-10.2)
[2019-07-05 10:22] LABS: PTH INTACT 160.2 PG/ML (18.5-88.0)
== END ==
LOC: M SFHCPLAZ 07:59
PROVIDERS: ATTEND Internal Medicine
DX: Z86.39 Personal history of other endocrine, nutritional and metabolic disease (principal)

== ENCOUNTER → 2019-09-19 | Outpatient (REF) | payer MEDICARE, OTHER ==
[2019-09-19 12:56] LABS: PLATELET COUNT, AUTOMATED 234 10^3/uL (150-450)
[2019-09-19 13:10] LABS: INR 1.03; PROTHROMBIN TIME 13.2 SECONDS (11.8-14.0)
[2019-09-19 13:11] LABS: PARTIAL THROMBOPLASTIN TIME 30.8 SECONDS (25.0-38.4)
== END ==
LOC: M LABDRAW1 12:23
PROVIDERS: ATTEND Physician Assistant
DX: Z01.812 Encounter for preprocedural laboratory examination (principal); Z79.01 Long term (current) use of anticoagulants

== ENCOUNTER → 2019-11-11 | Outpatient (CLI) | payer MEDICARE, BC, OTHER ==
--- NOTE | 2019-11-11 17:39 | REPVR ---
PROCEDURE INFORMATION: Exam: MR Lumbar Spine Without Contrast. Exam date and time: 11/11/2019 11:30 AM Age: 79 years old Clinical indication: Pain; Lumbago with sciatica; Bilateral; Additional info: Spinal stenosis lumbar region TECHNIQUE: Imaging protocol: Multiplanar magnetic resonance images of the lumbar spine without intravenous contrast. COMPARISON: No relevant prior studies available. FINDINGS: Vertebrae: T1 weighted images demonstrate mottled decreased signal throughout the vertebrae, findings which can be seen in association with chronic anemia or other myeloproliferative abnormality. This should be correlated with clinical evaluation. Spinal cord: Normal signal. No cord compression. L1-L2: Unremarkable. L2-L3: There is a moderate to severe degenerative central spinal stenosis at L2-L3 secondary to diffuse annular bulging, thickened ligamentum flavum and facet joint arthropathy. There is moderate to severe foraminal stenosis on the left and mild foraminal stenosis on the right. There is no lateral recess stenosis. L3-L4: There is a severe degenerative central spinal stenosis at L3-L4 secondary to diffuse annular bulging, thickened ligamentum flavum and facet joint arthropathy. There is crowding of the traversing nerve roots at the disc level likely related to the presence of a stenosis although localized arachnoiditis not excluded. There is mild lateral recess stenosis on the right. There is severe bilateral foraminal narrowing, right greater than left. L4-L5: There is a severe central degenerative spinal stenosis at L4-L5 secondary to diffuse annular bulging, thickened ligamentum flavum and facet joint arthropathy. There is mild loss of disc height with increased signal demonstrated in the central portion of the disc on STIR weighted images, findings which may indicate the presence of discitis. There is mild bilateral lateral recess narrowing. There is severe foraminal stenosis on the right and moderate foraminal stenosis on the left. Nerve root crowding demonstrated at the disc likely related to the presence of the stenosis although arachnoiditis not excluded. L5-S1: There is loss of disc height and a diffusely bulging annulus at L5-S1 without central spinal stenosis. There is no lateral recess stenosis. There is severe bilateral foraminal narrowing. Soft tissues: There is abnormal signal deep to the psoas muscle on the right at the L4-L5 level adjacent to the suspected focus of possible discitis. Finding may represent paraspinal extension of infection. IMPRESSION: 1. T1 weighted images demonstrate mottled decreased signal throughout the vertebrae, findings which can be seen in association with chronic anemia or other myeloproliferative abnormality. This should be correlated with clinical evaluation. 2. Multilevel spinal stenoses, moderate to severe at L2-L3, severe at L3-L4, and severe at L4-L5. 3. Abnormal disc signal at L4-L5 raises the index of suspicion for discitis with the paraspinal extension on the right as described above. 4. Crowding of traversing nerve roots at L3-L4 and L4-L5 likely related to the presence of spinal stenosis at each level although arachnoiditis not excluded. 5. Multilevel foraminal narrowing as described above. Electronically signed by: Nilesh Grimes On 11/11/2019 17:38:51 PM
== END ==
LOC: M PLARAD 10:45
PROVIDERS: ATTEND Physician Assistant
DX: M48.07 Spinal stenosis, lumbosacral region (principal); M51.26 Other intervertebral disc displacement, lumbar region

== ENCOUNTER → 2019-12-05 | Outpatient (CLI) | payer MEDICARE, BC, OTHER ==
[2019-12-05 14:03] LABS: ALT/SGPT 21 U/L (12-78); BILIRUBIN,TOTAL 0.7 MG/DL (0.2-1.0); BLOOD UREA NITROGEN 17 MG/DL (7-18); CALCIUM LEVEL 9.9 MG/DL (8.8-10.2); CARBON DIOXIDE LEVEL 28 MEQ/L (21-32); CHLORIDE LEVEL 111 MEQ/L (98-107); CHOLESTEROL LEVEL 162 MG/DL (<200); CHOLESTEROL RISK RATIO 2.454 (<5); CREATININE FOR GFR 1.03 MG/DL (0.70-1.30); GLOMERULAR FILTRATION RATE > 60.0 (>42); GLUCOSE, FASTING 86 MG/DL (70-100); HDL CHOLESTEROL 66 MG/DL (>40); LDL CHOLESTEROL 69 MG/DL (<100); MAGNESIUM LEVEL 2.2 MG/DL (1.8-2.4); NON-HDL-C 96 MG/DL; POTASSIUM SERUM 4.4 MEQ/L (3.5-5.1); SODIUM LEVEL 143 MEQ/L (136-145); TOTAL PROTEIN 6.9 GM/DL (6.4-8.2); TRIGLYCERIDES LEVEL 133 MG/DL (<150)
== END ==
LOC: M PLALAB 10:37
PROVIDERS: ATTEND Internal Medicine
DX: E78.00 Pure hypercholesterolemia, unspecified (principal); I10 Essential (primary) hypertension

== ENCOUNTER → 2019-12-23 | Outpatient (REF) | payer MEDICARE, OTHER ==
[~2019-12-23] MED LIST changes: -IRBE300T10 PO; +IRBE300T7 PO; -MONT10TA2; -MONT10TA2 PO; +MONT10TA4; +MONT10TA4 PO
[2019-12-23 13:16] LABS: BASO % 0.7 % (0.0-1.0); EOS # 0.2 10^3/uL (0.0-0.5); EOS % 3.6 % (0.0-3.0); HEMATOCRIT 43.9 % (42.0-52.0); HEMOGLOBIN 13.8 g/dl (13.5-17.5); LYMPH # 1.4 10^3/uL (1.5-5.0); LYMPH % 24.7 % (24.0-44.0); MEAN CORPUSCULAR HEMOGLOBIN 30.8 pg (27.0-33.0); MEAN CORPUSCULAR HGB CONC 31.4 g/dl (32.0-36.5); MONO # 0.6 10^3/uL (0.0-0.8); MONO % 10.1 % (0.0-5.0); NEUTROPHILS # 3.4 10^3/uL (1.5-8.5); NEUTROPHILS % 60.7 % (36.0-66.0); PLATELET COUNT, AUTOMATED 252 10^3/uL (150-450); RED BLOOD COUNT 4.48 10^6/uL (4.30-6.10); WHITE BLOOD COUNT 5.5 10^3/uL (4.0-10.0)
[2019-12-23 13:51] LABS: ERYTHROCYTE SEDIMENTATION RATE 6 mm/hr (0-20)
[2019-12-23 13:52] LABS: C REACTIVE PROTEIN QUANTITATIV < 0.30 MG/DL (0.00-0.30); TOTAL PROTEIN 7.2 GM/DL (6.4-8.2)
[2019-12-27 11:23] LABS: ALBUMIN 4.28 GM/DL (3.29-5.55); ALBUMIN % 59.5 % (55.8-66.1); ALPHA-1-GLOBULIN % 3.2 % (2.9-4.9); ALPHA-1-GLOBULINS 0.23 GM/DL (0.17-0.41); ALPHA-2-GLOBULINS 0.75 GM/DL (0.42-0.99); ALPHA-2-GLOBULINS % 10.4 % (7.1-11.8); BETA-1-GLOBULINS 0.48 GM/DL (0.28-0.60); BETA-1-GLOBULINS % 6.7 % (4.7-7.2); BETA-2-GLOBULINS 0.38 GM/DL (0.19-0.55); BETA-2-GLOBULINS % 5.3 % (3.2-6.5); GAMMA GLOBULIN % 14.9 % (11.1-18.8); GAMMA GLOBULINS 1.07 GM/DL (0.65-1.58)
== END ==
LOC: M LABDRAW1 13:06
PROVIDERS: ATTEND Physical Medicine & Rehabilitation
DX: M47.897 Other spondylosis, lumbosacral region (principal)

== ENCOUNTER → 2020-05-22 | Outpatient (CLI) | payer MEDICARE, BC, OTHER ==
[~2020-05-22] MED LIST changes: +MELO15TA28 PO
--- NOTE | 2020-05-22 12:43 | ECGEPIP ---
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
[2020-05-22 13:39] LABS: BLOOD UREA NITROGEN 17 MG/DL (7-18); CALCIUM LEVEL 10.9 MG/DL (8.8-10.2); CARBON DIOXIDE LEVEL 26 MEQ/L (21-32); CHLORIDE LEVEL 108 MEQ/L (98-107); CREATININE FOR GFR 1.01 MG/DL (0.70-1.30); GLOMERULAR FILTRATION RATE > 60.0 (>42); GLUCOSE, FASTING 87 MG/DL (70-100); POTASSIUM SERUM 4.3 MEQ/L (3.5-5.1); SODIUM LEVEL 139 MEQ/L (136-145)
== END ==
LOC: M LAB 11:07
PROVIDERS: ATTEND Orthopaedic Surgery
DX: Z01.818 Encounter for other preprocedural examination (principal)

== ENCOUNTER → 2020-06-02 | Outpatient (CLI) | payer MEDICARE, BC, OTHER | LOC: M LABSMTC 09:19 | PROVIDERS: ATTEND Anesthesiology | DX: Z01.818 Encounter for other preprocedural examination (principal); Z11.59 Encounter for screening for other viral diseases | CPT/HCPCS: C9803; U0003 ==

== ENCOUNTER 2020-06-07 09:30 | Inpatient (IN) | payer MEDICARE, BC, OTHER ==
--- NOTE | 2020-06-06 14:41 | HPE ---
DATE OF ANTICIPATED ADMISSION: 06/07/2020 ATTENDING PHYSICIAN: Dr. Adrián Peña CHIEF COMPLAINT: Right-sided lumbar radiculopathy. HISTORY: This is a pleasant 80-year-old male patient with progressively worsening right-sided radiculopathic pain down the right lower extremity and back discomfort, who has failed conservative treatment. He has been consented for a right L3, 4, and [address] Peña. ALLERGIES: No known drug allergies. CURRENT MEDICATIONS: vitamin D 2000 units two by mouth daily, probiotic one by mouth daily, temovate 0.5 ointment apply as needed, Protopic 0.1% ointment apply as needed, Restasis 0.05% one drop into the affected eye twice a day, Systane one drop into the affected eye twice a day as needed, Benefiber 2 tablespoons by mouth daily, atorvastatin calcium 10 mg one by mouth daily, irbesartan 300 mg one by mouth daily, Flomax 0.4 mg one by mouth daily, Neurontin 600 mg one by mouth twice a day, meloxicam 15 mg one by mouth daily as needed, montelukast sodium 10 mg tablet one by mouth daily, hydroxyzine 10 mg one by mouth at bedtime as needed. PAST MEDICAL HISTORY: 1. Hypertension. 2. Hyperlipidemia. 3. Psoriasis. 4. Sleep apnea. 5. Diverticulosis. 6. Hypercalcemia. 7. Colonic polyps. 8. Vitamin D deficiency. 9. Nephrolithiasis. 10. Dry eyes. 11. Psoriatic arthritis. 12. Obstructive uropathy. 13. Primary insomnia. SURGICAL HISTORY: 1. Appendectomy. 2. Hernia repair. 3. Colectomy FAMILY HISTORY: Father from transient ischemic attacks (TIAs), bladder cancer, heart disease. Mother myocardial infarction (GA). SOCIAL HISTORY: The patient is a nonsmoker and does not use alcohol. REVIEW OF SYSTEMS: Denies fever, chills, chest pain, shortness of breath, nausea, vomiting, diarrhea. Denies any recent upper respiratory or urinary tract infection symptoms. On physical examination: Vital signs: Temperature 98.3, height 64.25, weight 160 and 6 ounces, body mass index (BMI) 27.3. He is a well-developed, well-nourished 80-year-old male patient in no apparent distress. He ambulates into clinic with a nonantalgic gait. Neck is supple and nontender with no lymphadenopathy or jugular venous distention (JVD). S1, S2 auscultated with no murmurs, rubs, or gallops. Lungs: Clear to auscultation bilaterally without wheezes, rales, rhonchi. Abdomen: Soft, nontender. Lumbar spine shows intact overlying skin with no rashes or deformity. Bilateral lower extremities are well-perfused. Electrocardiogram (EKG) reviewed with sinus rhythm and probable old inferior GA. Hemoglobin 14.2. IMPRESSION: Symptomatic L3, 4, and 5 right-sided radiculopathy. PLAN: Consented for right-sided unilateral laminectomy by Dr. Peña at L3, 4, and 5 on 06/07/2020 pending negative COVID testing.
[~2020-06-07] VITALS: Ht 167.6 cm; Wt 71.8 kg
[~2020-06-07 09:30] MED LIST changes: +CelecoXIB (CeleBREX) 100 MG CAP PO ONE; +GABAPENTIN 300 MG CAP PO ONE; +LIDOCAINE 1% MDV 20ML VIAL SQ PRN; +LR 1,000 ML IV ONE; -MELO15TA28 PO; +PERCOCET 5MG/325MG TAB PO ONE; +SUGAMMADEX SODIUM 500 MG/5 ML VIAL (BRIDION) As Ordered ONE; +propofoL 200 MG/20 ML VIAL As Ordered ONE
[2020-06-07] MEDS ORDERED: fentaNYL 100 MCG/2 ML INJECTION (J3010) As Ordered ONE (11:38)
[2020-06-07] MEDS ORDERED: ROCURONIUM BROMIDE 50 MG/5 ML VIAL As Ordered ONE (11:38)
[2020-06-07] MEDS ORDERED: LIDOCAINE 2% 100MG/5ML SDV (FOR ANES.) As Ordered ONE (11:38)
[2020-06-07] MEDS ORDERED: propofoL 200 MG/20 ML VIAL As Ordered ONE (11:38)
[2020-06-07] MEDS ORDERED: ONDANSETRON 4MG/2ML VIAL As Ordered ONE (11:39)
[2020-06-07] MEDS ORDERED: dexameTHASONE 4 MG/ML 1ML VIAL (J1100 PER 1MG) As Ordered ONE (11:39)
[2020-06-07 11:41] VITALS: BP 158/70
[2020-06-07] MEDS ORDERED: MELO15TA28 PO (11:58)
--- NOTE | 2020-08-02 13:04 | RO ---
DATE OF OPERATION: 06/07/2020 PREOPERATIVE DIAGNOSIS: Spinal stenosis, L3/4/5. Post producing neurogenic claudication, right more than left lower extremity. POSTOPERATIVE DIAGNOSIS: Spinal stenosis, L3/4/5. Post producing neurogenic claudication, right more than left lower extremity. INTRAOPERATIVE FINDINGS: Included large extradural cyst at the L4/5 level producing significant central stenosis, larger than what I expected on the MRI. PROCEDURE: Right unilateral laminectomy for decompression of the thecal sac exiting traversing nerve roots at L3, additional level of L4, additional level L5. SURGEON: Adrián Peña [employer] GLAZER: ONEYDA Robles ANESTHESIA: General. ESTIMATED BLOOD LOSS: Less than 100 ml, replaced with Crystalloid. DRAINS: None. COMPLICATIONS: None. INDICATIONS: Right greater than left lower extremity neurogenic claudication. The patient failed conservative management, elected for operating intervention. Consent reviewed in detail including a finn discussion with pathology involved with the procedure proposed, alternatives including doing nothing and risks including, but not limited to, pain, failure, infection, bleeding, blood loss, incomplete relief of symptoms, need for additional surgery and other issues, he agrees to proceed. OPERATIVE COURSE: Identified in the holding area, site and side identified, brought to the operating room. Once anesthesia was administered, time-out was accomplished and he was positioned on the Ovidio frame for exposure of f the lumbar spine. Knees were slightly flexed. Once I and the cyber intelligence analyst were comfortable with the patient's positioned, we then began the surgical procedure. I stood on the right side and Mr. Cervantes stood on the left side as the certified pathology assistant. The incision was based on palpation of bony landmarks, infiltrated with 0.25% Marcaine with Epinephrine and then made with a 10 blade knife developed down through skin, subcuticular tissue to the posterior lumbar fascia. I was utilizing a 3.5 loupe magnification at this time. Posterior lumbar fascia reflected off the spinous processes of 3, 4, 5 and dissection continued down to the L4 lamina. We drilled the lamina and placed a Felipe Issa probe, got a cross table lateral x-ray to verify our level. Next, the dissection was further developed superiorly and inferiorly to allow for good exposure. Next, posterior lamina was removed using Le[place]ells on the right side to; facets were preserved. At this stage, the operating microscope was brought in for additional portions of this operative procedure. My loupe magnification was exchanged. Mr. Cervantes looked through oculars on the patients left side, I through oculars on the right side. The operating microscope facilitated safe use of the high-speed bur. High-speed bur was utilized to implement a right unilateral laminectomy extending from L4 superiorly to L3, then superiorly through L3 through the bare area of 3, about 20% of the3-4 facet complex was compromised and about 25% of L4-5 and the course of dissection continued, dissection down to the bare area of 5. This allowed elevation of ligamentum flavum from L3 through 4 through 5 and it was removed piecemeal fashion using curets, as well as Kerrisons. Next, once this was accomplished, lateal recess was decompressed. Next, I did encounter some adhesions at the 4-5 level and a large cyst, which seemed to originate more from between spinous processes then the facet complexes. This was needing to be carefully dissected free from the thecal sac. Next, once this was accomplished, we appreciated significant midline decompression of thecal sac and then I reached across the horizon and decompressed the contralateral lateral recess using curve curets, as well as #2 Kerrisons under direct visualization using the operating microscope. Once this was accomplished, irrigation was accomplished. Next, we removed the retractors. We re-approximated the posterior lumbar fascia. We anesthetized using Exparel solution for perioperative pain management. Next, we closed deep dermis using interrupted stitch and a Prineo dressing was placed on skin. Of note, Mr. Cervantes was present, participated in the entirety of the case MTDD
--- NOTE | 2020-08-03 14:18 | DSES ---
DATE OF ADMISSION: 06/07/2020 DATE OF DISCHARGE: 06/08/2020 ADMITTING DIAGNOSIS: Lumbar spinal stenosis, right greater than left, at L3, L4 and L5. OTHER DIAGNOSES: 1. Hypertension. 2. Elevated lipids. 3. Psoriasis. 4. Sleep apnea. 5. Diverticulosis. 6. Elevated calcium. 7. Vitamin D deficiency. 8. History of kidney stones. 9. Benign prostatic hypertrophy. 10. Insomnia. DISCHARGE DIAGNOSIS: Lumbar spinal stenosis with neurogenic claudication, right greater than left, at L3, L4 and L5; status post lumbar decompression on the right side at L3, L4 and L5. HISTORY: This is a 80-year-old male patient with progressively worsening leg symptoms and back pain with symptoms consistent with neurogenic claudication. His MRI is consistent with spinal stenosis at L3, L4 and L5. His right leg is worse than his left. He failed to improve with conservative management and he was admitted for elective laminectomy at L3, L5 and L5 unilaterally from the right side. OPERATION PERFORMED: Right unilateral laminectomy, L3, L4 and L5. HOSPITAL COURSE: The patient was admitted on the day of surgery and underwent a right unilateral laminectomy, L3, L4 and L5. It was well tolerated by the patient. There were no incidents. On the day of discharge, he was doing well, weightbearing as tolerated on the lower extremities. He will use oral pain medications for pain control. He will resume his preoperative medications. Diet was given. Instructions included, but were not limited to, wound monitoring and activity limitations. He will follow up in our office in 7-10 days. Please refer to the medical record for further details. KRISTINA
== END 2020-06-08 09:10 | disposition home or self-care (01) | DRG 517 ==
LOC: M OR 11:11
PROVIDERS: ADMIT Orthopaedic Surgery; ATTEND Orthopaedic Surgery
PROC: 0QB00ZZ Excision of Lumbar Vertebra, Open Approach (ICD-10-PCS; principal; 2020-06-07)
DX: M48.062 Spinal stenosis, lumbar region with neurogenic claudication (principal); I10 Essential (primary) hypertension; G47.00 Insomnia, unspecified; K57.30 Diverticulosis of large intestine without perforation or abscess without bleeding; E55.9 Vitamin D deficiency, unspecified; N40.0 Benign prostatic hyperplasia without lower urinary tract symptoms; L40.8 Other psoriasis

== ENCOUNTER → 2020-10-18 | Outpatient (CLI) | payer MEDICARE, BC, OTHER ==
[~2020-10-18] MED LIST changes: -CelecoXIB (CeleBREX) 100 MG CAP PO ONE; -GABAPENTIN 300 MG CAP PO ONE; -LIDOCAINE 1% MDV 20ML VIAL SQ PRN; -LR 1,000 ML IV ONE; +MELO15TA28 PO; -MONT10TA4; -MONT10TA4 PO; +MONT5TAB2; +MONT5TAB2 PO; -PERCOCET 5MG/325MG TAB PO ONE; -SUGAMMADEX SODIUM 500 MG/5 ML VIAL (BRIDION) As Ordered ONE; -propofoL 200 MG/20 ML VIAL As Ordered ONE
== END ==
LOC: M LABSMTC 13:17
PROVIDERS: ATTEND Physical Medicine & Rehabilitation
DX: Z01.812 Encounter for preprocedural laboratory examination (principal); Z20.828 Contact with and (suspected) exposure to other viral communicable diseases

== ENCOUNTER → 2020-11-01 | Outpatient (CLI) | payer MEDICARE, BC, OTHER | LOC: M LABSMTC 11:34 | PROVIDERS: ATTEND Orthopaedic Surgery | DX: Z01.812 Encounter for preprocedural laboratory examination (principal); Z20.828 Contact with and (suspected) exposure to other viral communicable diseases ==

== ENCOUNTER → 2020-12-07 | Outpatient (REF) | payer MEDICARE, OTHER ==
[~2020-12-07] MED LIST changes: +GABA-282 PO; -GABA-843 PO; +LISI10TA22 PO; -LISI10TA4 PO; +MONT10TA10; +MONT10TA10 PO; -MONT5TAB2; -MONT5TAB2 PO
[2020-12-07 12:53] LABS: HEMATOCRIT 40.8 % (42.0-52.0); HEMOGLOBIN 13.8 g/dl (13.5-17.5); MEAN CORPUSCULAR HEMOGLOBIN 32.2 pg (27.0-33.0); MEAN CORPUSCULAR HGB CONC 33.8 g/dl (32.0-36.5); MEAN CORPUSCULAR VOLUME 95.1 fl (80.0-96.0); PLATELET COUNT, AUTOMATED 259 10^3/uL (150-450); RED BLOOD COUNT 4.29 10^6/uL (4.30-6.10); WHITE BLOOD COUNT 7.1 10^3/uL (4.0-10.0)
[2020-12-07 13:34] LABS: ALBUMIN 3.9 GM/DL (3.2-5.2); ALT/SGPT 35 U/L (12-78); BILIRUBIN,TOTAL 0.9 MG/DL (0.2-1.0); BLOOD UREA NITROGEN 16 MG/DL (7-18); CALCIUM LEVEL 12.5 MG/DL (8.8-10.2); CARBON DIOXIDE LEVEL 29 MEQ/L (21-32); CHLORIDE LEVEL 101 MEQ/L (98-107); CHOLESTEROL LEVEL 167 MG/DL (<200); CHOLESTEROL RISK RATIO 2.061 (<5); CREATININE FOR GFR 1.23 MG/DL (0.70-1.30); GLOMERULAR FILTRATION RATE > 60.0 (>42); GLUCOSE, FASTING 102 MG/DL (70-100); HDL CHOLESTEROL 81 MG/DL (>40); LDL CHOLESTEROL 63 MG/DL (<100); MAGNESIUM LEVEL 2.2 MG/DL (1.8-2.4); NON-HDL-C 86 MG/DL; POTASSIUM SERUM 3.2 MEQ/L (3.5-5.1); PTH INTACT 357.6 PG/ML (18.5-88.0); SODIUM LEVEL 138 MEQ/L (136-145); TOTAL 25(OH) VITAMIN D 46.8 NG/ML (30.0-100.0); TOTAL PROTEIN 6.8 GM/DL (6.4-8.2); TRIGLYCERIDES LEVEL 117 MG/DL (<150)
== END ==
LOC: M PLALAB 11:08
PROVIDERS: ATTEND Internal Medicine
DX: G47.30 Sleep apnea, unspecified (principal); I10 Essential (primary) hypertension; E78.00 Pure hypercholesterolemia, unspecified; Z86.39 Personal history of other endocrine, nutritional and metabolic disease

== ENCOUNTER → 2020-12-19 | Outpatient (REF) | payer MEDICARE, OTHER | LOC: M LAB REF 18:50 | PROVIDERS: ATTEND Dermatology | DX: L57.0 Actinic keratosis (principal); L57.8 Other skin changes due to chronic exposure to nonionizing radiation ==

== ENCOUNTER → 2021-06-06 | Outpatient (CLI) | payer MEDICARE, OTHER ==
[2021-06-06 15:52] LABS: ALBUMIN 3.7 GM/DL (3.2-5.2); ALT/SGPT 28 U/L (12-78); BILIRUBIN,TOTAL 0.8 MG/DL (0.2-1.0); BLOOD UREA NITROGEN 18 MG/DL (7-18); CALCIUM LEVEL 10.6 MG/DL (8.8-10.2); CARBON DIOXIDE LEVEL 31 MEQ/L (21-32); CHLORIDE LEVEL 106 MEQ/L (98-107); CREATININE FOR GFR 1.15 MG/DL (0.70-1.30); GLOMERULAR FILTRATION RATE > 60.0 (>35); GLUCOSE, FASTING 129 MG/DL (70-100); POTASSIUM SERUM 3.6 MEQ/L (3.5-5.1); SODIUM LEVEL 140 MEQ/L (136-145); TOTAL PROTEIN 6.8 GM/DL (6.4-8.2)
[2021-06-06 15:58] LABS: PTH INTACT 153.5 PG/ML (18.5-88.0)
== END ==
LOC: M PLALAB 13:43
PROVIDERS: ATTEND Internal Medicine
DX: I10 Essential (primary) hypertension (principal); Z11.59 Encounter for screening for other viral diseases; E83.52 Hypercalcemia
CPT/HCPCS: 36415; 80053; 83970; G0472

== ENCOUNTER → 2021-12-18 | Outpatient (CLI) | payer MEDICARE, BC, OTHER ==
[~2021-12-18] MED LIST changes: -CEFD1CAP8 PO; +CEFD300C41 PO; +LOSA100T45 PO; -LOSA100T50 PO; -MONT10TA10; -MONT10TA10 PO; +MONT10TA97; +MONT10TA97 PO
== END ==
LOC: M WHC 10:48
PROVIDERS: ATTEND Internal Medicine
DX: Z86.39 Personal history of other endocrine, nutritional and metabolic disease (principal); M81.0 Age-related osteoporosis without current pathological fracture

== ENCOUNTER → 2022-04-09 | Outpatient (CLI) | payer MEDICARE, BC, OTHER ==
[~2022-04-09] MED LIST changes: +BENE1POW7 PO; +D3 H2000 PO; +INDA125TA PO; +SYST1SOL OU
[2022-04-09 16:29] LABS: ALBUMIN 3.7 GM/DL (3.2-5.2); ALT/SGPT 28 U/L (12-78); BILIRUBIN,TOTAL 0.8 MG/DL (0.2-1.0); BLOOD UREA NITROGEN 15 MG/DL (7-18); CARBON DIOXIDE LEVEL 28 MEQ/L (21-32); CHLORIDE LEVEL 106 MEQ/L (98-107); CREATININE FOR GFR 1.22 MG/DL (0.70-1.30); GLOMERULAR FILTRATION RATE > 60.0 (>35); GLUCOSE, FASTING 125 MG/DL (70-100); MAGNESIUM LEVEL 2.3 MG/DL (1.8-2.4); POTASSIUM SERUM 3.7 MEQ/L (3.5-5.1); SODIUM LEVEL 138 MEQ/L (136-145); TOTAL PROTEIN 6.9 GM/DL (6.4-8.2)
[2022-04-09 16:30] LABS: PTH INTACT 159.5 PG/ML (18.5-88.0)
== END ==
LOC: M WUC 13:00
PROVIDERS: ATTEND Internal Medicine
DX: I10 Essential (primary) hypertension (principal); Z12.5 Encounter for screening for malignant neoplasm of prostate; Z86.39 Personal history of other endocrine, nutritional and metabolic disease

== ENCOUNTER → 2022-04-22 | Outpatient (CLI) | payer MEDICARE, BC, OTHER | LOC: M CARPUL 10:22 | PROVIDERS: ATTEND Internal Medicine | DX: R01.1 Cardiac murmur, unspecified (principal) ==

== ENCOUNTER → 2022-04-23 | Outpatient (CLI) | payer MEDICARE, OTHER, BC | LOC: M WUC 09:04 | PROVIDERS: ATTEND Physician Assistant | DX: R97.20 Elevated prostate specific antigen [PSA] (principal) ==

== ENCOUNTER → 2022-04-24 | Outpatient (CLI) | payer MEDICARE, BC, OTHER ==
[~2022-04-24] MED LIST changes: -BENE1POW7 PO; -D3 H2000 PO; -INDA125TA PO; -SYST1SOL OU
== END ==
LOC: M LABSMTC 11:37
PROVIDERS: ATTEND Anesthesiology
DX: Z01.812 Encounter for preprocedural laboratory examination (principal); Z20.822 Contact with and (suspected) exposure to COVID-19

== ENCOUNTER 2022-04-29 07:53 | Day surgery (SDC) | payer MEDICARE, BC, OTHER ==
[~2022-04-29] VITALS: Ht 165.1 cm; Wt 67.6 kg
[~2022-04-29 07:53] MED LIST changes: +BENE1POW7 PO; +D3 H2000 PO; +INDA125TA PO; +NS 1,000 ML IV ONE; +SYST1SOL OU
[2022-04-29] MEDS ORDERED: propofoL 200 MG/20 ML VIAL As Ordered ONE (09:36)
[2022-04-29 10:14] VITALS: BP 144/78
== END 2022-04-29 10:58 | disposition home or self-care (01) ==
LOC: M OPP 07:53
PROVIDERS: ATTEND Internal Medicine Gastroenterology
DX: Z12.11 Encounter for screening for malignant neoplasm of colon (principal); Z86.010 Personal history of colon polyps; Z80.0 Family history of malignant neoplasm of digestive organs; K63.5 Polyp of colon; K57.30 Diverticulosis of large intestine without perforation or abscess without bleeding; K64.8 Other hemorrhoids; Z98.0 Intestinal bypass and anastomosis status; Z79.02 Long term (current) use of antithrombotics/antiplatelets; Z79.891 Long term (current) use of opiate analgesic; Z79.899 Other long term (current) drug therapy; Z90.49 Acquired absence of other specified parts of digestive tract; Z87.19 Personal history of other diseases of the digestive system

== ENCOUNTER → 2022-05-16 | Outpatient (REF) | payer MEDICARE, BC, OTHER ==
[~2022-05-16] MED LIST changes: -NS 1,000 ML IV ONE
== END ==
LOC: M SMT PRO 13:22
PROVIDERS: ATTEND Urology
DX: R97.20 Elevated prostate specific antigen [PSA] (principal)

== ENCOUNTER → 2022-06-23 | Outpatient (CLI) | payer MEDICARE, BC, OTHER ==
[~2022-06-23] MED LIST changes: +INDA1.253 PO; -INDA125TA PO
== END ==
LOC: M PLAIMG 15:50
PROVIDERS: ATTEND Urology
DX: Z87.442 Personal history of urinary calculi (principal)

== ENCOUNTER → 2022-11-11 | Outpatient (REF) | payer MEDICARE, BC, OTHER | LOC: M SFHCDERM 18:03 | PROVIDERS: ATTEND Physician Assistant | DX: M85.5 Aneurysmal bone cyst (principal) ==

== ENCOUNTER → 2022-12-03 | Outpatient (CLI) | payer MEDICARE, BC, OTHER ==
[2022-12-03 10:18] LABS: HEMATOCRIT 41.2 % (42.0-52.0); HEMOGLOBIN 13.2 g/dl (13.5-17.5); MEAN CORPUSCULAR HEMOGLOBIN 31.2 pg (27.0-33.0); MEAN CORPUSCULAR VOLUME 97.4 fl (80.0-96.0); PLATELET COUNT, AUTOMATED 223 10^3/uL (150-450); RED BLOOD COUNT 4.23 10^6/uL (4.30-6.10); WHITE BLOOD COUNT 5.1 10^3/uL (4.0-10.0)
[2022-12-03 10:48] LABS: PROSTATIC SPECIFIC AG MONITOR 6.13 NG/ML (< 4.00)
[2022-12-03 10:51] LABS: ALBUMIN 3.7 G/DL (3.2-5.2); ALKALINE PHOSPHATASE 62 U/L (46-116); ALT/SGPT 23 U/L (7.0-40); AST/SGOT 24 U/L (<34); BILIRUBIN,TOTAL 1.2 MG/DL (0.3-1.2); BLOOD UREA NITROGEN 16 MG/DL (9-23); CALCIUM LEVEL 10.8 MG/DL (8.3-10.6); CARBON DIOXIDE LEVEL 28 MMOL/L (20-31); CHLORIDE LEVEL 108 MMOL/L (98-107); CHOLESTEROL LEVEL 146 MG/DL (<200); CREATININE FOR GFR 1.17 MG/DL (0.70-1.30); GLOMERULAR FILTRATION RATE > 60.0 (>35); GLUCOSE, FASTING 82 MG/DL (74-106); HDL CHOLESTEROL 66.3 MG/DL (>40); LDL CHOLESTEROL 62.5 MG/DL (<100); NON-HDL-C 80 MG/DL; POTASSIUM SERUM 4.1 MMOL/L (3.5-5.1); PTH INTACT 198.4 PG/ML (18.5-88.0); SODIUM LEVEL 141 MMOL/L (136-145); TOTAL PROTEIN 6.4 G/DL (5.7-8.2); TRIGLYCERIDES LEVEL 86 MG/DL (<150)
[2022-12-03 10:52] LABS: TOTAL 25(OH) VITAMIN D 43.7 NG/ML (20.0-100.0)
== END ==
LOC: M WUC 08:17
PROVIDERS: ATTEND Family Medicine
DX: E78.00 Pure hypercholesterolemia, unspecified (principal); I10 Essential (primary) hypertension; N40.0 Benign prostatic hyperplasia without lower urinary tract symptoms; G47.30 Sleep apnea, unspecified; E55.9 Vitamin D deficiency, unspecified; Z79.899 Other long term (current) drug therapy

== ENCOUNTER → 2022-12-05 | Outpatient (REF) | payer MEDICARE, BC, OTHER | LOC: M LABWUC 16:16 | PROVIDERS: ATTEND Family Medicine | DX: Z13.29 Encounter for screening for other suspected endocrine disorder (principal); Z79.899 Other long term (current) drug therapy ==

== ENCOUNTER → 2024-05-31 | Outpatient (CLI) | payer MEDICARE, BC, OTHER ==
[~2024-05-31] MED LIST changes: +CEFD1CAP9 PO; -CEFD300C41 PO; -HYDR200T3 PO; +HYDR200T46 PO; +IRBE300T25 PO; -IRBE300T7 PO; -LOSA100T45 PO; +LOSA100T46 PO
[2024-05-31 10:22] LABS: HEMATOCRIT 42.7 % (42.0-52.0); MEAN CORPUSCULAR HEMOGLOBIN 32.3 pg (27.0-33.0); MEAN CORPUSCULAR HGB CONC 32.8 g/dl (32.0-36.5); MEAN CORPUSCULAR VOLUME 98.6 fl (80.0-96.0); PLATELET COUNT, AUTOMATED 243 10^3/uL (150-450); RED BLOOD COUNT 4.33 10^6/uL (4.30-6.10); WHITE BLOOD COUNT 6.3 10^3/uL (4.0-10.0)
[2024-05-31 10:26] LABS: PROSTATIC SPECIFIC AG MONITOR 7.47 NG/ML (< 4.00)
[2024-05-31 10:30] LABS: CALCIUM LEVEL 11.2 MG/DL (8.3-10.6); CHOLESTEROL RISK RATIO 2.49 (<5); CREATININE FOR GFR 1.24 MG/DL (0.70-1.30); GLOMERULAR FILTRATION RATE 59.3 (>35); HDL CHOLESTEROL 61.4 MG/DL (>40); LDL CHOLESTEROL 71.2 MG/DL (<100); NON-HDL-C 91.6 MG/DL; POTASSIUM SERUM 4.2 MMOL/L (3.5-5.1); TOTAL PROTEIN 6.9 G/DL (5.7-8.2)
[2024-05-31 10:32] LABS: TOTAL 25(OH) VITAMIN D 50.1 NG/ML (20.0-100.0)
== END ==
LOC: M WUC 08:02
PROVIDERS: ATTEND Family Medicine
DX: E78.00 Pure hypercholesterolemia, unspecified (principal); I10 Essential (primary) hypertension; J18.9 Pneumonia, unspecified organism; G47.30 Sleep apnea, unspecified; E55.9 Vitamin D deficiency, unspecified; N40.1 Benign prostatic hyperplasia with lower urinary tract symptoms

== ENCOUNTER → 2024-06-06 | Outpatient (CLI) | payer MEDICARE, BC ==
[2024-06-06 09:37] LABS: IONIZED CALCIUM 5.7 MG/DL (4.5-5.3)
[2024-06-06 10:23] LABS: ALBUMIN 3.9 G/DL (3.2-5.2); BLOOD UREA NITROGEN 12 MG/DL (9-23); CALCIUM LEVEL 11.3 MG/DL (8.3-10.6); CARBON DIOXIDE LEVEL 29 MMOL/L (20-31); CHLORIDE LEVEL 109 MMOL/L (98-107); CREATININE FOR GFR 1.21 MG/DL (0.70-1.30); GLOMERULAR FILTRATION RATE > 60.0 (>35); GLUCOSE, FASTING 97 MG/DL (74-106); PHOSPHORUS LEVEL 2.1 MG/DL (2.4-5.1); SODIUM LEVEL 142 MMOL/L (136-145)
== END ==
LOC: M LAB 08:12 → M WUC 08:12
PROVIDERS: ATTEND Family Medicine
DX: E83.52 Hypercalcemia (principal)

== ENCOUNTER → 2025-06-09 | Outpatient (CLI) | payer MEDICARE, BC ==
[~2025-06-09] MED LIST changes: -ALIG4CAP PO; +ALIG4CAP3 PO; -FLOM0.4C39 PO; +GABA-1172 PO; -GABA-282 PO; +TAMS-18 PO
[2025-06-09 12:26] LABS: PLATELET COUNT, AUTOMATED 243 10^3/uL (150-450)
[2025-06-09 12:35] LABS: ALT/SGPT 21.0 U/L (7.0-40); AST/SGOT 22.0 U/L (<34); CALCIUM LEVEL 10.1 MG/DL (8.3-10.6); CARBON DIOXIDE LEVEL 28.0 MMOL/L (20-31); CHLORIDE LEVEL 106.0 MMOL/L (98-107); CHOLESTEROL LEVEL 149.0 MG/DL (<200); CHOLESTEROL RISK RATIO 2.37 (<5); CREATININE FOR GFR 1.31 MG/DL (0.70-1.30); GLOMERULAR FILTRATION RATE 53.7 (>35); LDL CHOLESTEROL 69.0 MG/DL (<100); NON-HDL-C 86.2 MG/DL; POTASSIUM SERUM 4.0 MMOL/L (3.5-5.1); SODIUM LEVEL 143.0 MMOL/L (136-145); TOTAL 25(OH) VITAMIN D 38.6 NG/ML (20.0-100.0); TRIGLYCERIDES LEVEL 86.0 MG/DL (<150)
== END ==
LOC: M WUC 08:04
PROVIDERS: ATTEND Family Medicine
DX: R05.8 Other specified cough (principal); J30.9 Allergic rhinitis, unspecified; M67.449 Ganglion, unspecified hand; G47.30 Sleep apnea, unspecified; E21.0 Primary hyperparathyroidism; I10 Essential (primary) hypertension; E78.00 Pure hypercholesterolemia, unspecified; E55.9 Vitamin D deficiency, unspecified

== ENCOUNTER → 2025-06-28 | Outpatient (CLI) | payer MEDICARE, BC | LOC: M WHC 12:27 | PROVIDERS: ATTEND Family Medicine | DX: M85.852 Other specified disorders of bone density and structure, left thigh (principal); M85.851 Other specified disorders of bone density and structure, right thigh ==

== ENCOUNTER → 2025-08-07 | Outpatient (CLI) | payer MEDICARE, BC ==
[2025-08-07 13:41] LABS: PLATELET COUNT, AUTOMATED 285 10^3/uL (150-450)
[2025-08-07 13:50] LABS: VITAMIN B12 LEVEL 441.0 PG/ML (211-911)
[2025-08-07 13:53] LABS: ALT/SGPT 21.0 U/L (7.0-40); AST/SGOT 23.0 U/L (<34); CALCIUM LEVEL 11.4 MG/DL (8.3-10.6); CARBON DIOXIDE LEVEL 28.0 MMOL/L (20-31); CHLORIDE LEVEL 108.0 MMOL/L (98-107); CREATININE FOR GFR 1.36 MG/DL (0.70-1.30); GLOMERULAR FILTRATION RATE 51.3 (>35); POTASSIUM SERUM 4.1 MMOL/L (3.5-5.1); PTH INTACT 275.7 PG/ML (18.5-88.0); SODIUM LEVEL 139.0 MMOL/L (136-145)
== END ==
LOC: M WUC 08:07
PROVIDERS: ATTEND Family Medicine
DX: D64.9 Anemia, unspecified (principal); N18.31 Chronic kidney disease, stage 3a; E21.0 Primary hyperparathyroidism

== ENCOUNTER → 2025-11-08 | Outpatient (REF) | payer MEDICARE, BC ==
[2025-11-08 12:47] LABS: APPEARANCE, URINE CLEAR (CLEAR); BACTERIA, URINE AUTO NEGATIVE (NEGATIVE); BILIRUBIN, URINE AUTO NEGATIVE (NEGATIVE); BLOOD, URINE BLOOD NEGATIVE (NEGATIVE); GLUCOSE, URINE (UA) AUTO NEGATIVE (NEGATIVE); KETONE, URINE AUTO NEGATIVE (NEGATIVE); LEUKOCYTE ESTERASE, URINE AUTO NEGATIVE (NEGATIVE); NITRITE, URINE AUTO NEGATIVE (NEGATIVE); PROTEIN, URINE AUTO NEGATIVE (NEGATIVE); RBC, URINE AUTO 1 /HPF (0-3); SPECIFIC GRAVITY URINE AUTO 1.014 (1.002-1.035); SQUAMOUS EPITHELIAL CELL UR AU 0 /HPF (0-6); UROBILINOGEN, URINE AUTO 0.2 mg/dL (0.0-2.0); WBC, URINE AUTO 0 /HPF (0-3)
== END ==
LOC: M SFHCPLAZ 12:32
PROVIDERS: ATTEND Student in an Organized Health Care Education/Training Program
DX: Z01.818 Encounter for other preprocedural examination (principal)

== ENCOUNTER → 2025-11-13 | Outpatient (CLI) | payer MEDICARE, BC ==
[2025-11-13 11:55] LABS: BASO # 0.1 10^3/uL (0.0-0.2); BASO % 1.1 % (0.0-1.0); EOS # 0.2 10^3/uL (0.0-0.5); EOS % 3.3 % (0.0-3.0); LYMPH # 1.3 10^3/uL (1.5-5.0); LYMPH % 23.5 % (24.0-44.0); MONO # 0.6 10^3/uL (0.0-0.8); MONO % 10.4 % (2.0-8.0); NEUTROPHILS # 3.4 10^3/uL (1.5-8.5); NEUTROPHILS % 61.3 % (36.0-66.0); PLATELET COUNT, AUTOMATED 253 10^3/uL (150-450)
[2025-11-13 12:10] LABS: INR 0.95
== END ==
LOC: M WUC 08:20
PROVIDERS: ATTEND Podiatrist
DX: Z01.818 Encounter for other preprocedural examination (principal); M20.40 Other hammer toe(s) (acquired), unspecified foot